=== PATIENT | female | born 1990 | race Caucasian/White ===

== ENCOUNTER → 2017-04-26 | Outpatient (CLI) | payer OTHER ==
[2017-04-30 01:44] LABS: CHLAMYDIA TRACH RNA*** NOT DETECTED (NOT DETECTED); GC (NEIS GONORRHOEAE)RNA** NOT DETECTED (NOT DETECTED)
== END | disposition home or self-care (01) ==
LOC: C.LABSPEC 15:49
PROVIDERS: ATTEND Physician Assistant
DX: Z12.4 Encounter for screening for malignant neoplasm of cervix (principal)

== ENCOUNTER → 2017-04-26 | Outpatient (CLI) | payer OTHER | END | disposition home or self-care (01) | LOC: C.PAPS 16:09 | PROVIDERS: ATTEND Physician Assistant | DX: Z01.419 Encounter for gynecological examination (general) (routine) without abnormal findings (principal) ==

== ENCOUNTER → 2017-06-18 | Outpatient (CLI) | payer OTHER ==
[2017-06-18 17:33] LABS: HEMATOCRIT 42.2 % (37-47); MEAN CELL VOLUME 95.3 fL (80-100); MEAN CORPUSCULAR HEMOGLOBIN 32.5 pg (25-34); MEAN CORPUSCULAR HGB CONC 34.1 g/dl (32-36); MEAN PLATELET VOLUME 10.9 fL (7.4-10.4); PLATELET COUNT 175 K/uL (130-400); RED BLOOD COUNT 4.43 M/uL (4.2-5.4); WHITE BLOOD COUNT 4.94 K/uL (4.8-10.8)
[2017-06-18 17:47] LABS: ALT/SGPT 23 U/L (12-78); AST/SGOT 12 U/L (15-37); BLOOD UREA NITROGEN 11 mg/dl (7-18); BUN/CREATININE RATIO 13.7 (10-20); CALCIUM 8.6 mg/dl (8.5-10.1); CARBON DIOXIDE 26 mmol/L (21-32); CHLORIDE 110 mmol/L (98-107); CREATININE 0.83 mg/dl (0.60-1.20); GLUCOSE 84 mg/dl (70-99); POTASSIUM 4.5 mmol/L (3.5-5.1); SODIUM 141 mmol/L (136-145)
[2017-06-18 17:49] LABS: ALB/GLOB RATIO 1.1 (0.9-2); ALKALINE PHOSPHATASE 45 U/L (45-117); CHOLESTEROL 152 mg/dl (0-200); CHOLESTEROL/HDL RATIO 2.5; HDL CHOLESTEROL 61 mg/dl; LDL CHOLESTEROL CALCULATED 84 mg/dl; TRIGLYCERIDES 33 mg/dl (0-150); VERY LOW DENSITY LIPOPROT CALC 7 mg/dl
[2017-06-19 05:55] LABS: ESTIMATED AVERAGE GLUCOSE 91 mg/dl; HA1C FLAG Normal (Normal)
== END | disposition home or self-care (01) ==
LOC: C.LABBC 12:54
PROVIDERS: ATTEND Internal Medicine
DX: Z00.00 Encounter for general adult medical examination without abnormal findings (principal); Z13.1 Encounter for screening for diabetes mellitus; Z13.220 Encounter for screening for lipoid disorders

== ENCOUNTER → 2017-09-19 | Outpatient (CLI) | payer OTHER ==
[2017-09-19 12:04] LABS: BASO % 0.2 %; BASO ABS # 0.02 K/uL (0-0.2); COMPLETE YES; EOS % 3.2 %; HEMATOCRIT 39.9 % (37-47); IG% 0.4 %; LYMPH ABS # 1.64 K/uL (1.2-3.4); MEAN CELL VOLUME 93.2 fL (80-100); MEAN CORPUSCULAR HEMOGLOBIN 32.5 pg (25-34); MEAN CORPUSCULAR HGB CONC 34.8 g/dl (32-36); MEAN PLATELET VOLUME 10.3 fL (7.4-10.4); MONO % 6.8 %; NEUT % 69.4 %; PLATELET COUNT 184 K/uL (130-400); RED BLOOD COUNT 4.28 M/uL (4.2-5.4); WHITE BLOOD COUNT 8.18 K/uL (4.8-10.8)
[2017-09-19 13:21] LABS: URINE APPEARANCE CLEAR (CLEAR); URINE BILIRUBIN NEG (NEG); URINE COLOR YELLOW; URINE NITRITE NEG (NEG); UROBILINOGEN NEG (NEG)
[2017-09-19 13:23] LABS: MANUAL MICROSCOPIC REQUIRED? NO; REVIEW REQ? NO
[2017-09-25 02:56] LABS: CHLAMYDIA TRACH RNA*** NOT DETECTED (NOT DETECTED); GC (NEIS GONORRHOEAE)RNA** NOT DETECTED (NOT DETECTED)
== END | disposition home or self-care (01) ==
LOC: C.LAB1850 10:25
PROVIDERS: ATTEND Obstetrics & Gynecology
DX: Z34.01 Encounter for supervision of normal first pregnancy, first trimester (principal); Z20.9 Contact with and (suspected) exposure to unspecified communicable disease

== ENCOUNTER → 2017-11-15 | Outpatient (CLI) | payer OTHER | END | disposition home or self-care (01) | LOC: C.LAB1850 16:23 | PROVIDERS: ATTEND Obstetrics & Gynecology | DX: Z34.01 Encounter for supervision of normal first pregnancy, first trimester (principal) ==

== ENCOUNTER → 2018-02-03 | Outpatient (CLI) | payer OTHER | END | disposition home or self-care (01) | LOC: C.LABSPEC 17:40 | PROVIDERS: ATTEND Obstetrics & Gynecology | DX: Z34.03 Encounter for supervision of normal first pregnancy, third trimester (principal); Z3A.00 Weeks of gestation of pregnancy not specified ==

== ENCOUNTER → 2018-02-03 | Outpatient (CLI) | payer OTHER ==
[2018-02-03 17:24] LABS: HEMATOCRIT 35.4 % (37-47); HEMOGLOBIN 12.5 g/dL (12.0-16.0)
== END | disposition home or self-care (01) ==
LOC: C.LAB1850 16:21
PROVIDERS: ATTEND Obstetrics & Gynecology
DX: Z34.03 Encounter for supervision of normal first pregnancy, third trimester (principal); Z3A.00 Weeks of gestation of pregnancy not specified

== ENCOUNTER 2018-04-25 15:43 | Inpatient (IN) | payer OTHER ==
[~2018-04-25] VITALS: Ht 172.7 cm; Wt 90.0 kg
[2018-04-25] MEDS ORDERED: LACTATED RINGER'S 1000ML 1,000 ML IV PRN (15:59)
[2018-04-25] MEDS ORDERED: LACTATED RINGER'S 1000ML 1,000 ML IV SCH (15:59)
[2018-04-25] MEDS ORDERED: PRENTAB26 PO (16:15)
[2018-04-25 16:17] VITALS: Ht 172.7 cm; Wt 90.0 kg
[2018-04-25 16:18] LABS: HEMATOCRIT 37.4 % (37-47); HEMOGLOBIN 12.9 g/dL (12.0-16.0); MEAN CELL VOLUME 93.3 fL (80-100); MEAN CORPUSCULAR HEMOGLOBIN 32.2 pg (25-34); MEAN CORPUSCULAR HGB CONC 34.5 g/dl (32-36); MEAN PLATELET VOLUME 10.8 fL (7.4-10.4); PLATELET COUNT 162 K/uL (130-400); RED CELL DISTRIBUTION WIDTH CV 13.4 % (11.5-14.5); RED CELL DISTRIBUTION WIDTH SD 45.6 fL (36.4-46.3); WHITE BLOOD COUNT 10.15 K/uL (4.8-10.8)
[2018-04-25] MEDS ORDERED: BUPIVACAINE 0.25% 30 ML VIAL ONE (19:51)
[2018-04-25] MEDS ORDERED: EpHEDrine SULFATE INJ 50 MG/ML AMP ONE (19:51)
[2018-04-25] MEDS ORDERED: FENTANYL 2MCG/ML ROPIV 1.25MG/ML 100ML BAG ONE (19:52)
[2018-04-25] MEDS ORDERED: FENTANYL CITRATE INJ 50 MCG/1 ML 2 ML VIAL ONE (19:52)
[2018-04-25] MEDS ORDERED: LACTATED RINGER'S 1000ML 500 ML IV PRN ×3 (21:13→21:51)
[2018-04-25] MEDS ORDERED: NALOXONE HCL INJ 1 MG in SODIUM CHLORIDE 0.9% 1000ML 1,000 ML IV PRN ×2 (21:14→21:51)
[2018-04-25] MEDS ORDERED: EpHEDrine SULFATE INJ 50 MG/ML AMP IV PRN ×2 (21:15→22:00)
[2018-04-25] MEDS ORDERED: DiphenhydrAMINE HCL 50 MG/ML VIAL IV PRN ×2 (21:15→22:00)
[2018-04-25] MEDS ORDERED: NALBUPHINE HCL INJ 10 MG/ML 1ML AMP IV PRN ×2 (21:15→22:00)
[2018-04-25] MEDS ORDERED: FENTANYL 2MCG/ML ROPIV 1.25MG/ML 100ML BAG EPI PRN ×2 (21:15→22:00)
[2018-04-25] MEDS ORDERED: NALOXONE HCL INJ 0.4 MG/1 ML VIAL/CARP IV PRN ×2 (21:15→22:00)
[2018-04-25] MEDS ORDERED: ONDANSETRON INJ 2 MG/ML 2 ML VIAL IV PRN ×2 (21:15→22:00)
[2018-04-25] MEDS ORDERED: OXYTOCIN 30 UNITS/500ML NSS IV PRN (21:15)
[2018-04-26] MEDS ORDERED: OXYTOCIN 30 UNITS/500ML NSS IV PRN (01:30)
[2018-04-26] MEDS ORDERED: BENZOCAINE 20% AER SPR 82.5 GM CAN EXT PRN (01:30)
[2018-04-26] MEDS ORDERED: ACETAMINOPHEN 325 MG TAB PO PRN (01:30)
[2018-04-26] MEDS ORDERED: DIPHTHERIA/TETANUS/PERTUSSIS 0.5 ML SYR/VIAL IM. ONE (01:30)
[2018-04-26] MEDS ORDERED: IBUPROFEN 600 MG TAB PO PRN (01:30)
[2018-04-26] MEDS ORDERED: LACTATED RINGER'S 1000ML 1,000 ML IV SCH (01:30)
[2018-04-26] MEDS ORDERED: LANOLIN OINT EXT PRN (01:30)
[2018-04-26] MEDS ORDERED: HYDROCORTISONE ACETATE 25 MG SUPP PR PRN (01:30)
[2018-04-26] MEDS ORDERED: SUPERCREAM 0.870 % 15GM JAR EXT PRN (01:30)
[2018-04-26] MEDS ORDERED: OXYCODONE/ACETAMINOPHEN 5-325 TAB PO PRN (01:30)
--- NOTE | 2018-04-26 01:35 | Vaginal Delivery Summary ---
Vaginal Delivery Summary who presented in labor and was augmented with AROM and Pit, plus epidural for pain management. I was notified after the patient's first push, and came to the room to assess, finding her to be pushing very well. Shortly thereafter we prepped for delivery. The patient delivered a viable male in RONY position with no difficulty whatsoever. A single nuchal cord was reduced at the perineum. The infant was placed on the maternal abdomen while the cord was clamped and cut by the FOB. The placenta delivered spontaneously and was intact with a 3VC. There was a 2nd degree laceration that was repaired with 3- 0 vicryl, plus a 2-0 vicryl for the crown suture to rebuild the perineal body. At completion of repair the fundus was firm, lochia was minimal, and baby and mother were in stable condition having tolerated delivery well.
--- NOTE | 2018-04-26 03:13 | Anesthesia Procedure Note ---
Anesthesia Epidural Removal Nt Date & Time Apr 26, 2018 at 03:13 Vital Signs Pain Intensity: 9.0 Notes Mental Status: alert / awake / arousable, participated in evaluation Nausea / Vomiting: adequately controlled Pain: adequately controlled Airway Patency, RR, SpO2: stable & adequate BP & HR: stable & adequate Hydration State: stable & adequate Neuraxial Anesthesia: was administered Anesthetic Complications: no major complications apparent, pt satisfied with anesthetic care Epidural: removed without complications, with tip intact
[2018-04-26 04:00] VITALS: BP 114/67; PULSE 99; TEMP 36.9
--- NOTE | 2018-04-26 06:53 | OB/GYN Progress Note ---
BOTTOM PRESSER Progress Note Date of Service Apr 26, 2018. Subjective conversation w/ patient Ambulation: ambulating normally Voiding: no voiding problems Passing Gas: Yes Diet Tolerance: Regular Diet Lochia: Moderate Pain: Improving Review of Systems Respiratory: No shortness of breath Cardiac: No chest pain, No palpitations Female : No dysuria Objective Vital Signs Date Time Temp Pulse Resp B/P (MAP) Pulse Ox O2 Delivery O2 Flow Rate FiO2 04/26/18 04:00 Room Air 04/26/18 04:00 36.9 99 18 114/67 (83) Room Air Physical Exam General Appearance: WELL-APPEARING, NO APPARENT DISTRESS Respiratory/Chest: lungs clear, normal breath sounds, no respiratory distress Cardiovascular: regular rate, rhythm, no murmur Abdomen: soft Fundus: Firm (at umbilicus) Laboratory Results Last 24 Hours Test 04/25/18 16:10 White Blood Count 10.15 K/uL Red Blood Count 4.01 M/uL Hemoglobin 12.9 g/dL Hematocrit 37.4 % Mean Corpuscular Volume 93.3 fL Mean Corpuscular Hemoglobin 32.2 pg Mean Corpuscular Hemoglobin Concent 34.5 g/dl RDW Standard Deviation 45.6 fL RDW Coefficient of Variation 13.4 % Platelet Count 162 K/uL Mean Platelet Volume 10.8 fL Assessment and Plan Post- Day Number: 1 Continue Routine Care: Analgesia PRN Escalate diet Ambulation encouraged Resident Physician Supervision Note: I interviewed and examined the patient. Discussed with Dr. Gaytan and agree with findings and plan as documented in the note. Any exceptions or clarifications are listed here: [None] Documented By: Judith El
--- NOTE | 2018-04-26 06:56 | Discharge Instructions ---
Discharge Instructions Date of Service Apr 26, 2018. Admission Reason for Admission: R/O Labor Discharge Discharge Diagnosis / Problem: Vaginal Delivery Discharge Goals Goal(s): Routine recovery after delivery Medications Continue Dispensed Medications: supercream, dermaplast, tucks, lansinoh Activity Recommendations Activity Limitations: per Instructions/Follow-up section . Instructions / Follow-Up Instructions / Follow-Up ACTIVITY RECOMMENDATIONS: * Gradual return to full activity over the next 2-3 weeks. * No lifting - nothing heavier than baby over the next 2-3 weeks. * Do not engage in vigorous exercise, sexual activity or sports until cleared by your physician. * Do not drive or operate any motorized equipment until cleared by your physician. * You may shower/bathe daily. MEDICATIONS: For discomfort or pain, you may use Acetaminophen (Tylenol), Ibuprofen (Advil), or Naproxen (Aleve) following the package directions. For constipation you may use Colace following the package directions. BREAST CARE: If you are not breast feeding: * Wear a supportive bra 24 hours a day for one to two weeks. * Avoid stimulating your breasts and nipples as much as possible during the first few weeks after delivery. * When taking a shower, have the warm water hit your back, not breasts. * When your breasts feel full, apply ice packs. Usually three to four times a day helps ease the discomfort. * Take a mild pain medication (Tylenol / Motrin) when you are uncomfortable. If breast feeding: * Use breast milk to lubricate nipples. Lansinoh cream may be used for sore nipples. You do not need to remove cream prior to breast feeding. If using a different brand of cream, check the label for directions regarding removal of cream prior to nursing. * Wear a supportive bra. * If having problems with breasts or breast feeding, call a senior energy consultant or your health care provider. EPISIOTOMY CARE: After delivery, if you have an episiotomy (stitches), the following steps will ease discomfort and aid healing. * For the first 24 hours after delivery, place ice packs next to your episiotomy to help reduce swelling. * After the first 24 hour-period, sitz baths, either portable or in the tub, are suggested. A shower with a shower arm sprayed over the episiotomy may be comforting. * Monica care should be done after each voiding and bowel movement. Squirt warm water from a plastic bottle over the perineum (region of the body between the anus and urinary opening) and pat dry. * Use Dermoplast to ease discomfort. Shake container. [place] directly over the episiotomy. Place a Tucks on a clean sanitary pad next to your episiotomy. SPECIAL CARE INSTRUCTIONS: When you are discharged from the hospital, it is important for you to follow the instructions listed below: * During the first week at home, you should be able to care for yourself and your baby. In addition, the usual light household activities are encouraged. * Limit your activities to the way you feel. Do not try to clean the house or move furniture. Be sensible. * If you actively engage in sports and have done so up until the time of your delivery, you may resume these activities as soon as you feel able. This may take up to one month or even longer. Use good judgment. * Continue to take your vitamins for at least six weeks after the of your baby. * Your diet need not be limited unless you were on a special diet before your delivery. Breast-feeding mothers need around 2500 calories per day and at least 64-80 ounces of fluid per day (8 to 10 glasses). * You should eat foods from the four major food groups. Crash diets or fad diets are to be avoided. Eating lean meats, fresh fruits and vegetables, low-fat dairy products, high fiber foods and a regular exercise program, will help you get back to your pre- weight without putting your health at risk. * Constipation is sometimes a problem after delivery. Take a mild laxative as needed. If breast feeding, Milk of Magnesia is acceptable to use. You may use a suppository or Fleets enema if no episiotomy. * A daily shower or tub bath is suggested. Be sure to thoroughly and gently dry the perineum. * A bloody vaginal discharge will usually continue until around four weeks post . A small amount of bleeding may continue for as long as six weeks. Vaginal discharge changes from the bright red bleeding after delivery to pink then brownish and finally yellowish-pink before becoming white and disappearing. * Bleeding may increase with activity. Your first period may come in 4-8 weeks. If you are breast feeding, your period may be delayed even longer. * [place] (sex) can begin whenever both you and your partner feel comfortable and do not have any form of genital infection. It is recommended that you wait at least six weeks for internal and external healing to occur. If you have questions, please talk to your health care practitioner. A condom should be used to prevent infection and . * Foreplay, gentle intercourse and lubrication is very important the first several times to prevent pain. A water-based lubricant such as K-Y jelly or Astroglide may be used. * If you have RH negative blood and your baby is RH positive, you will receive RHOGAM by injection prior to discharge. The nurse will give you a card to keep with you that has the date and place that you received RHOGAM after delivery. * During your care, you had a Rubella screen done to check for the presence of rubella antibodies in your blood. If your test was negative, you will receive a Rubella vaccine prior to discharge. This vaccine may cause a fever, soreness at the injection site and flu-like symptoms. If these symptoms persist, notify your health care practitioner. is not advised for one month after a Rubella vaccine. * Verbalizes understanding of car seat law as reviewed with patient nursing. * Car Seat hand-out given and reviewed with patient by nursing. * Shaken baby information reviewed with patient by nursing. Call you doctor if: * Heavy bleeding (saturating several pads an hour) or passing clots the size of your fist. * A fever >101 degrees F (38.3 degrees C) on two occasions four hours apart and /or chills. * Unusual pain in the pelvic or vaginal areas. * "Baby Blues" lasting longer than two weeks. If you have any questions or concerns, call your health care practitioner at . FOLLOW UP VISIT: * Please call the office at to schedule a 6 week examination. It is important you keep this appointment. It is important for you to make arrangements for either yearly or twice yearly check-ups thereafter. Current Hospital Diet Patient's current hospital diet: Regular OB Diet Discharge Diet Recommended Diet: Regular OB Diet Pending Studies Studies pending at discharge: no Medical Emergencies . Who to Call and When: Medical Emergencies: If at any time you feel your situation is an emergency, please call [phone] immediately. . Non-Emergent Contact Non-Emergency issues call your: Primary Care Provider . . "Provider Documentation" section prepared by Charisse Gaytan. .
[2018-04-26 07:45] VITALS: BP 101/60; PULSE 90; TEMP 36.7
[2018-04-26] MEDS: DOCUSATE SODIUM 100 MG CAP PO SCH ×2 (07:53→19:34)
[2018-04-26] MEDS: PRENATAL VITAMIN TAB PO SCH (07:53)
[2018-04-26 11:50] VITALS: BP 100/67; PULSE 79; TEMP 36.9
[2018-04-26 17:15] VITALS: BP 108/67; PULSE 80; TEMP 36.6
[2018-04-26 19:35] VITALS: BP 104/65; PULSE 90; TEMP 36.8; O2SAT 98
[2018-04-26 22:45] VITALS: BP 101/64; PULSE 79; TEMP 36.8; O2SAT 99
[2018-04-27 06:50] LABS: HEMATOCRIT 34.9 % (37-47); HEMOGLOBIN 11.8 g/dL (12.0-16.0)
--- NOTE | 2018-04-27 07:57 | Progress Note ---
Subjective Apr 27, 2018. Subjective conversation w/ patient, physical exam Ambulation: ambulating normally Voiding: no voiding problems Diet Tolerance: Regular Diet Lochia: Small Feeding Type: Breast Feeding Pain: denies pain issues. Objective Vital Signs Date Time Temp Pulse Resp B/P (MAP) Pulse Ox O2 Delivery O2 Flow Rate FiO2 04/26/18 22:45 36.8 79 16 101/64 (76) 99 Room Air 04/26/18 19:35 36.8 90 16 104/65 (78) 98 Room Air 04/26/18 19:35 Room Air 04/26/18 17:15 36.6 80 20 108/67 (81) 04/26/18 11:50 36.9 79 16 100/67 (78) Physical Exam General Appearance: WELL-APPEARING, WD/WN, NO APPARENT DISTRESS Respiratory/Chest: lungs clear Cardiovascular: regular rate, rhythm Abdomen: non tender, soft Fundus: Firm, Relation to Umbilicus (2 down) Extremities: non-tender Laboratory Results Last 24 Hours Test 04/27/18 06:35 Hemoglobin 11.8 g/dL Hematocrit 34.9 % Assessment and Plan Post- Day#: 1 Continue Routine Care: stable, routine care. breast feeding.
[2018-04-27 08:35] VITALS: BP 103/67; PULSE 83; TEMP 36.7
[2018-04-27] MEDS: DOCUSATE SODIUM 100 MG CAP PO SCH ×2 (08:36→19:30)
[2018-04-27] MEDS: PRENATAL VITAMIN TAB PO SCH (08:37)
[2018-04-27 16:02] VITALS: BP 116/78; PULSE 79; TEMP 36.9
[2018-04-27 23:00] VITALS: BP 104/65; PULSE 71; TEMP 36.5; O2SAT 97
--- NOTE | 2018-04-28 06:29 | OB/GYN Progress Note ---
QUARRY WORKER Progress Note Date of Service Apr 28, 2018. Subjective conversation w/ patient Ambulation: ambulating normally Voiding: no voiding problems Passing Gas: Yes Diet Tolerance: Regular Diet Lochia: Small Feeding Type: Breast Feeding Pain: Improving to none Review of Systems Constitutional: No fever, No chills Respiratory: No shortness of breath Cardiac: No chest pain, No palpitations Abdomen: No pain Female : No dysuria Objective Vital Signs Date Time Temp Pulse Resp B/P (MAP) Pulse Ox O2 Delivery O2 Flow Rate FiO2 04/27/18 23:00 97 Room Air 04/27/18 23:00 36.5 71 16 104/65 (78) 97 Room Air 04/27/18 16:02 36.9 79 20 116/78 (91) 04/27/18 08:35 36.7 83 20 103/67 (79) Physical Exam General Appearance: WELL-APPEARING, WD/WN, NO APPARENT DISTRESS Respiratory/Chest: lungs clear, normal breath sounds, no respiratory distress Cardiovascular: regular rate, rhythm, no murmur Abdomen: soft Fundus: Firm (below umbilicus), Relation to Umbilicus Extremities: normal inspection, no calf tenderness Laboratory Results Last 24 Hours Test 04/27/18 06:35 Hemoglobin 11.8 g/dL Hematocrit 34.9 % Assessment and Plan Post- Day Number: 2 Continue Routine Care: Analgesia PRN Escalate diet as needed Ambulation encouraged Discharge today. (1) Normal labor and delivery Assessment & Plan: Resident Physician Supervision Note: I was present with Dr. Gaytan during the history and exam. I discussed the case with the resident and agree with the findings and plan as documented in the note. Any exceptions or clarifications are listed here: Pt doing well. REady for d/c. instructions reviewed. Hgb reviewed. FF 2 down. f/u 6 wks pp. Documented By: Odalys Arriola
[2018-04-28] MEDS: DOCUSATE SODIUM 100 MG CAP PO SCH (07:25)
[2018-04-28] MEDS: PRENATAL VITAMIN TAB PO SCH (07:25)
[2018-04-28 08:50] VITALS: BP 112/70; PULSE 97; TEMP 36.8
[2018-04-28 14:45] VITALS: BP_DIAS 70; PULSE 97; TEMP 36.8
== END 2018-04-28 14:45 | disposition home or self-care (01) | DRG 775 ==
LOC: C.LD 15:43 → C.OPB 15:43 → C.LD 16:00 → C.OPB 16:00 → C.OBG 04-26 03:53
PROVIDERS: ADMIT Obstetrics & Gynecology; ATTEND Obstetrics & Gynecology
PROC: 10E0XZZ Delivery of Products of Conception, External Approach (ICD-10-PCS; principal; 2018-04-26)
PROC: 0KQM0ZZ Repair Perineum Muscle, Open Approach (ICD-10-PCS; principal; 2018-04-26)
DX: O48.0 Post-term pregnancy (principal); O70.1 Second degree perineal laceration during delivery; O69.81X0 Labor and delivery complicated by cord around neck, without compression, not applicable or unspecified; Z37.0 Single live birth; Z3A.40 40 weeks gestation of pregnancy

== ENCOUNTER 2020-03-20 19:39 | Inpatient (IN) ==
[2020-03-20] MEDS ORDERED: OXYTOCIN 30 UNITS/500 ML BAG IV PRN (20:25)
[2020-03-20 20:47] LABS: Hematocrit (blood only) 33.6 % (37-47); Mean Corpuscular Hemoglobin 30.8 pg (25-34); Mean Corpuscular Volume 94.1 fL (80-100); Mean Platelet Volume 10.8 fL (7.4-10.4); Platelet Count 160 K/uL (130-400); RDW Coefficient of Variation 13.9 % (11.5-14.5); RDW Standard Deviation 47.3 fL (36.4-46.3); Red Blood Count 3.57 M/uL (4.2-5.4); White Blood Count 9.15 K/uL (4.8-10.8)
[2020-03-20 20:51] LABS: Mean Corpuscular Hgb Conc 32.7 g/dL (32-36)
--- NOTE | 2020-03-20 22:48 | History & Physical Report ---
Date of Service March 20, 2020 Assessment & Plan (1) : Admit to L&D. Labs. EFM/toco. IV fluids. Unsure whether she will want epidural or not. (2) Supervision of normal intrauterine in multigravida: Admission and Anticipated Discharge Date Admission Date: March 20, 2020 History of Present Illness Chief Complaint: contractions Primary Care Provider: ARIANNA PCP 29yo @ 40 0/7 presents with regular ctx. No leaking of fluid, no vaginal bleeding. + movement. uncomplicated. Allergies Allergy/AdvReac Type Severity Reaction Status Date / Time No Known Allergies Allergy Verified 03/20/20 19:56 Home Medications Home Medications Medication Instructions Recorded Confirmed Type vit no.[id number] 1 tab PO DAILY 11/21/19 03/20/20 History [ Vitamin] Patient History Medical History Acne Encounter for anatomic survey Hx of varicella Normal labor and delivery Surgical History [place] teeth removed Family History Grandmother Diabetes Heart disease Dyslipidemia Aunt No problems noted. Family/Other Cleft hard palate Social History Preferred Language: Albanian Communication Ability: Effective Senior Project Manager Required: No Beliefs That Will Affect Care: None marital status: marital status details: Ray Bundyrodney (42) [phone] Current Living Situation: Spouse and Family Current Living Situation Comment: lives with spouse and child, no pets current occupational status: unemployed current occupation: homemaker Other Information That Helps Us Care for You: No Feels Safe at Home: Yes Safety Concerns: Feels Safe At This Time Smoking Status: Never smoker Hx Alcohol Use: No Hx Substance Use: No Review of Systems All systems reviewed & are unremarkable except as noted in HPI & below Physical Exam Physical Exam: 3-4/70/-2 FHT Cat 1, [place] Q 2-4 min Constitutional: WD/WN, vitals as above Respiratory: normal respiratory effort, lungs clear to auscultation no respiratory distress Cardiovascular: Rate/Rhythm: regular rate and regular rhythm Gastrointestinal (Abdomen): Inspection/Auscultation: abdomen normal to inspection Percussion/Palpation: abdomen soft; abdomen nontender Gravid. No s/s chorio or abruption. Skin: no rashes, warm and dry Psychiatric: A+Ox3, euthymic affect Results & Data ([facility]) Vital Signs (Past 12 Hours) Vital Signs Temp Pulse Resp BP 03/20/20 21:56 36.5 C 100 H 18 118/66 03/20/20 19:52 36.8 C 136 H 20 123/72 Coding Level of Care Code None Diagnoses Z34.90 Supervision of normal intrauterine in multigravida Z34.80
[2020-03-20] MEDS: LACTATED RINGER'S 1,000 ML IV PRN (23:13)
[2020-03-20] MEDS ORDERED: ePHEDrine sulfate 50 MG/ML AMP ONE (23:16)
[2020-03-20] MEDS ORDERED: fentaNYL citrate 100 MCG/2 ML VIAL ONE (23:16)
[2020-03-20] MEDS ORDERED: BUPIVACAINE 0.25% 30 ML VIAL ONE (23:16)
[2020-03-20] MEDS ORDERED: fentaNYL 2MCG/ML ROPIV 1.25MG/ML 100 ML BAG EPI ONE (23:17)
[2020-03-20] MEDS ORDERED: NALOXONE HCL 1 MG in SODIUM CHLORIDE 0.9% 1000ML 1,000 ML IV PRN (23:24)
[2020-03-20] MEDS ORDERED: NALOXONE HCL 0.4 MG/1 ML VIAL/CARP IV PRN (23:24)
[2020-03-20] MEDS ORDERED: DiphenhydrAMINE HCL 50 MG/ML VIAL IV PRN (23:24)
[2020-03-20] MEDS ORDERED: ePHEDrine sulfate 50 MG/ML AMP IV PRN (23:24)
[2020-03-20] MEDS ORDERED: NALBUPHINE HCL INJ 10 MG/ML AMP IV PRN (23:24)
[2020-03-20] MEDS ORDERED: ONDANSETRON INJ 2 MG/ML 2 ML VIAL IV PRN (23:24)
[2020-03-20] MEDS ORDERED: fentaNYL 2MCG/ML ROPIV 1.25MG/ML 100 ML BAG EPI PRN (23:24)
--- NOTE | 2020-03-20 23:28 | Anesthesiology Consultation ---
Date of Service March 20, 2020 Assessment & Plan (1) Encounter for pre-operative examination: Chart Review Chart Review: Patient NOT seen in Pre Admission Testing and Acceptable Risk for Labor Epidural Consults Requested none History Height/Weight Height: 5 ft 10 in Weight: 82.554 kg Allergies Allergy/AdvReac Type Severity Reaction Status Date / Time No Known Allergies Allergy Verified 03/20/20 19:56 Medications Home Medications Medication Instructions Recorded Confirmed Last Taken vit no.[id number] 1 tab PO DAILY 11/21/19 03/20/20 03/20/20 08:00 [ Vitamin] Active Medications Generic Name Dose Route Start Last Admin Trade Name Freq PRN Reason Stop Dose Admin Lactated Ringer's 1,000 mls @ 125 mls/hr 03/20/20 20:25 03/20/20 23:13 Lr IV 03/22/20 20:24 999 mls/hr .Q8H PRN Administration L&D Protocol Protocol Past Medical History Medical History Acne Encounter for anatomic survey Hx of varicella Normal labor and delivery Exercise / Class Metabolic Activity II 4-5 Yardwork/Stairs/Walk up hill Past Family History Family History Grandmother Diabetes Heart disease Dyslipidemia Aunt No problems noted. Family/Other Cleft hard palate Past Surgical History Surgical History [place] teeth removed Past Anesthesia History No Hx of Anesthesia Complications and No Family Hx of Anesthesia Complications History of PONV No Hx of PONV and No Hx of Motion Sickness Social History Smoking Status: Never smoker Do You Dip or Chew Tobacco: No Hx Alcohol Use: No Hx Substance Use: No substance use type: does not use Physical Exam Vital Signs Last Vital Signs Temp 36.5 C 03/20/20 21:56 Pulse 90 03/20/20 23:19 Resp 18 03/20/20 21:56 BP 118/72 03/20/20 23:09 Pulse Ox 99 03/20/20 23:19 Testing Laboratory Results 03/20/20 20:38
[2020-03-21] MEDS: LACTATED RINGER'S 1,000 ML IV PRN (00:22)
[2020-03-21] MEDS ORDERED: OXYTOCIN 30 UNITS/500 ML BAG IV PRN ×2 (00:37→06:28)
--- NOTE | 2020-03-21 00:39 | Labor Progress Brief Note ---
Date of Service March 21, 2020 Subjective Patient has epidural, comfortable. FHT Cat 1 [place] Q 2-4. SVE 4/80/-2, soft/posterior. AROM performed, clear. If ctx space out, pitocin ordered. Patient agreeable to this. Assessment & Plan Admission and Anticipated Discharge Date Admission Date: March 20, 2020 Results & Data ([facility]) Vital Signs (Past 12 Hours) Vital Signs Temp Pulse Resp BP Pulse Ox 03/21/20 00:34 107 H 100 03/21/20 00:29 102 H 99 03/21/20 00:26 100 H 121/70 03/21/20 00:24 94 H 99 03/21/20 00:21 108 H 16 119/69 03/21/20 00:19 91 H 99 03/21/20 00:15 103 H 16 117/70 03/21/20 00:14 98 H 99 03/21/20 00:10 90 113/68 03/21/20 00:09 94 H 99 03/21/20 00:06 102 H 16 117/72 03/21/20 00:04 103 H 98 03/21/20 00:00 99 H 108/63 03/20/20 23:59 117 H 98 03/20/20 23:57 36.6 C 95 H 16 101/57 L 03/20/20 23:54 106 H 18 105/59 L 99 03/20/20 23:51 104 H 18 101/58 L 03/20/20 23:49 98 H 99 03/20/20 23:48 96 H 97/52 L 03/20/20 23:46 93 H 18 97/57 L 03/20/20 23:44 97 H 99 03/20/20 23:43 97 H 118/78 03/20/20 23:39 115 H 100 03/20/20 23:34 99 H 99 03/20/20 23:29 104 H 99 03/20/20 23:24 96 H 99 03/20/20 23:19 90 99 03/20/20 23:14 98 H 99 03/20/20 23:09 99 H 118/72 99 03/20/20 21:56 36.5 C 100 H 18 118/66 03/20/20 19:52 36.8 C 136 H 20 123/72 Coding Level of Care Code None
[2020-03-21] MEDS ORDERED: Nursing to Pharmacy Communication SCH (04:15)
[2020-03-21] MEDS ORDERED: BUPIVACAINE 0.25% 30 ML VIAL ONE (04:28)
--- NOTE | 2020-03-21 06:13 | Delivery Summary ---
Vaginal Delivery Summary Date of Service March 21, 2020 Vaginal Delivery Summary Vaginal Delivery Summary: Pre-delivery diagnoses: 29yo @ 40 09/29, spontaneous labor Post-delivery diagnoses: same Procedure: spontaneous vaginal delivery, repair of 1st degree perineal laceration Surgeon: Marlen Noyola DO Complications: none Findings: Viable female . Apgars: 8/9 . Weight pending, please see nursery records Estimated blood loss: 300ml Description of delivery: The patient progressed to complete with epidural anesthesia. She then began to push. She spontaneously vaginally delivered a viable from the cephalic presentation. The head delivered in RONY position. Nuchal cord x 1. Easily reduced. The anterior shoulder delivered, followed by the posterior shoulder, followed by the body. The baby was placed on mother's abdomen and a spontaneous cry was heard. Delayed cord clamping was employed, and the cord was doubly clamped and cut. Cord blood was obtained. The placenta was delivered spontaneously intact with a 3-vessel cord. The uterus and vagina were swept of clots and debris. IV pitocin was given. The uterus became firm. The cervix, vagina, and perineum were inspected and a first degree perineal laceration was noted and repaired with 3-0 vicryl in standard fashion. Excellent hemostasis was observed. The mother and baby are recovering in stable and good condition in the room. Sponge, needle and instrument counts were correct x 2. Marlen Noyola DO [facility] Vaginal Delivery Charge Vaginal Delivery Codes: 48419 global code for the antepartum, delivery, and post-
[2020-03-21] MEDS ORDERED: BENZOCAINE 20% AER SPR 82.5 GM CAN EXT PRN (06:28)
[2020-03-21] MEDS ORDERED: SUPERCREAM 0.870% 15 GM JAR EXT PRN (06:28)
[2020-03-21] MEDS ORDERED: HYDROCORTISONE ACETATE 25 MG SUPP PR PRN (06:28)
[2020-03-21] MEDS ORDERED: IBUPROFEN 600 MG TAB PO PRN (06:28)
[2020-03-21] MEDS ORDERED: ACETAMINOPHEN 325 MG TAB PO PRN (06:28)
[2020-03-21] MEDS ORDERED: OXYCODONE/ACETAMINOPHEN 5mg/325mg TAB PO PRN (06:28)
[2020-03-21] MEDS ORDERED: DIPHTHERIA/TETANUS/PERTUSSIS 0.5 ML SYR/VIAL IM ONE (06:28)
[2020-03-21] MEDS ORDERED: bisacodyL 10 MG SUPP PR PRN (06:28)
--- NOTE | 2020-03-21 06:52 | Anesthesia Procedure Note ---
Date of Service March 21, 2020 Anesthesia Post Epidural Note Vital Signs Vital Signs: Temp Pulse Resp BP Pulse Ox 36.5 C 90 18 103/58 L 99 03/21/20 04:11 03/21/20 06:35 03/21/20 06:35 03/21/20 06:35 03/21/20 06:05 Pain Intensity Bilateral Lower Abdomen: Pain Intensity: 7 Notes Mental Status: alert / awake / arousable Nausea / Vomiting: adequately controlled Pain: adequately controlled Airway Patency, RR, SpO2: stable & adequate BP & HR: stable & adequate Hydration State: stable & adequate Neuraxial Anesthesia: was administered and sensory block is resolving Anesthetic Complications: no major complications apparent Epidural: Removed without complications and With tip intact
[2020-03-21] MEDS ORDERED: PRENATAL VITAMIN 1 TAB PO SCH (09:00)
[2020-03-21] MEDS ORDERED: CALCIUM CARBONATE 500 MG CHEWABLE TAB PO PRN (09:10)
[2020-03-21] MEDS ORDERED: CALCIUM CARBONATE 500 MG CHEWABLE TAB ONE (09:15)
[2020-03-21] MEDS: DOCUSATE SODIUM 100 MG CAP PO SCH (21:28)
--- NOTE | 2020-03-22 06:55 | Obstetrical Progress Note ---
Date of Service March 22, 2020 Assessment & Plan (1) Status post vaginal delivery: Doing well. Plan d/c later today. Instructions reviewed. Subjective Ambulation: ambulating normally Voiding: no voiding problems Passing Gas:: Yes Diet Tolerance:: regular diet Lochia:: Small Feeding Type:: breast feeding Physical Exam Constitutional WD/WN, vitals as above Cardiovascular Extremities: no calf tenderness and no edema Gastrointestinal (Abdomen) soft, nt, ff/nt at u Psychiatric A+Ox3, euthymic affect Results & Data ([facility]) Vital Signs (Past 12 Hours) Vital Signs Temp Pulse Resp BP Pulse Ox 03/22/20 04:30 36.4 C L 82 17 104/63 97 03/21/20 23:35 36.8 C 76 16 107/61 97 03/21/20 20:20 36.8 C 78 17 117/62 99
[2020-03-22 07:30] LABS: Hematocrit (blood only) 32.7 % (37-47); Hemoglobin 10.9 g/dL (12.0-16.0)
[2020-03-22] MEDS: DOCUSATE SODIUM 100 MG CAP PO SCH (08:25)
[2020-03-22] MEDS ORDERED: bisacodyL 5 MG TABEC PO SCH (20:00)
== END 2020-03-22 13:09 | disposition home or self-care (01) | DRG 807 ==
LOC: OPB 19:39 → 4S1 19:41 → 4S2 03-21 08:53